=== PATIENT | male | born 1950 | race Caucasian/White ===

== ENCOUNTER 2017-07-30 14:50 | Inpatient (IN) | payer MEDICARE, BC ==
[~2017-07-30] VITALS: Ht 175.3 cm; Wt 92.7 kg
[2017-07-30] MEDS ORDERED: ASPI81TA30 PO (15:58)
[2017-07-30] MEDS ORDERED: LISI-600 PO (15:58)
[2017-07-30] MEDS ORDERED: MULT-933 PO (15:58)
[2017-07-30] MEDS ORDERED: ATOR20TA66 PO (15:58)
[2017-07-30] MEDS ORDERED: NABU750T2 PO (15:58)
[2017-07-30] MEDS ORDERED: CHLO4TAB36 PO (16:26)
[2017-07-30] MEDS ORDERED: tranexamic acid inj. 907 MG in normal saline 100ml IV soln 90.93 ML IV ONE (16:30)
[2017-07-30 16:58] LABS: BASOPHILS % (AUTO) 0.2 % (0-1); EOSINOPHILS # (AUTO) 0.4 X10'3 (0-0.9); EOSINOPHILS % (AUTO) 5.3 % (0-6); LYMPHOCYTES # (AUTO) 1.8 X10'3 (1.1-4.8); MEAN CORPUSCULAR HEMOGLOBIN 32.4 PG (27.0-31.0); MEAN CORPUSCULAR HGB CONC 34.6 % (33.0-36.5); MEAN CORPUSCULAR VOLUME 93.6 FL (78-98); MEAN PLATELET VOLUME 7.8 FL (7.4-10.4); MONOCYTES # (AUTO) 0.6 X10'3 (0-0.9); MONOCYTES % (AUTO) 8.7 % (2-12); NEUTROPHILS # (AUTO) 4.4 X10'3 (1.8-7.7); NEUTROPHILS % (AUTO) 60.8 % (42-75); PRE OP HEMATOCRIT 44.6 % (42.0-52.0); PRE OP HEMOGLOBIN 15.4 g/dL (14.0-17.9); PRE OP PLATELET COUNT 254 X10'3 (140-440); RED BLOOD COUNT 4.77 X10'6 (4.70-6.10); RED CELL DISTRIBUTION WIDTH 13.3 % (11.5-14.5)
[2017-07-30 17:05] LABS: ALBUMIN 3.8 G/DL (3.4-5.0); ALBUMIN/GLOBULIN RATIO 1.1 (1.1-1.5); ALKALINE PHOSPHATASE 62 IU/L (46-116); BLOOD UREA NITROGEN 15 MG/DL (7-18); BUN/CREATININE RATIO 13.6 (5.4-32.0); CALCIUM 8.6 MG/DL (8.5-10.1); CHLORIDE 104 MMOL/L (99-107); PRE OP ALT 45 U/L (30-65); PRE OP ANION GAP 9 (8-16); PRE OP AST 25 U/L (10-37); PRE OP BILIRUB, TOTAL 0.5 MG/DL (0.0-1.0); PRE OP SODIUM 140 MMOL/L (135-145); TOTAL CARBON DIOXIDE 26.9 MMOL/L (24-32); TOTAL PROTEIN 7.3 G/DL (6.4-8.2); eGFR 66 ML/MIN
[2017-07-30 17:11] LABS: PRE OP GLUCOSE 230 MG/DL (70-104)
[2017-07-30 17:19] LABS: HEMOGLOBIN A1C 6.7 % (4.5-6.2)
[2017-07-31] VITALS (17 sets, daily range): BP systolic 125–142; BP diastolic 69–88
[2017-07-31] MEDS ORDERED: ringers solution, lacted 1,000 ML IV SCH ×2 (05:00→10:14)
[2017-07-31] MEDS ORDERED: tranexamic acid inj. 907 MG in normal saline 100ml IV soln 90.93 ML IV ONE (05:30)
[2017-07-31] MEDS ORDERED: famotidine 20mg tablet PO ONE (05:30)
[2017-07-31] MEDS ORDERED: VANCOMYCIN INJ 1000 MG in NORMAL SALINE 250ml IV.SOLN IV ONE (05:30)
[2017-07-31] MEDS ORDERED: ceFAZolin inj. 2,000 MG in dextrose 5%-water 100 ML IV ONE (06:00)
[2017-07-31] MEDS ORDERED: vancomycin 1,000mg inj ONE (06:53)
[2017-07-31] MEDS ORDERED: ketorolac trometh. 30mg/ml inj. ONE (06:53)
[2017-07-31] MEDS ORDERED: ROPIVAcaine 0.5% (5mg/ml) 30ml vial ONE (06:53)
[2017-07-31] MEDS ORDERED: propofol inj 20 ML IV ONE (08:22)
[2017-07-31] MEDS ORDERED: LIDOcaine 2% (20mg/ml) 5ml vial ONE (08:22)
[2017-07-31] MEDS ORDERED: rocuronium 10mg/ml inj IV ONE (08:24)
[2017-07-31] MEDS ORDERED: fentaNYL /PF 50mcg/ml 5ml ampule ONE (08:26)
[2017-07-31] MEDS ORDERED: MIDAZolam 5mg/5ml vial ONE (08:27)
[2017-07-31] MEDS ORDERED: sevoflurane 250ml liquid IH ONE (08:39)
[2017-07-31] MEDS ORDERED: ePHEDrine 50MG/ML INJ. ONE (08:39)
[2017-07-31] MEDS ORDERED: ondansetron/PF 4mg/2ml inj IV PRN ×2 (10:15→11:20)
[2017-07-31] MEDS ORDERED: HYDROmorphone inj. 0.5 MG/0.5 ML DISP.SYRIN IV PRN ×3 (10:15→11:20)
[2017-07-31] MEDS ORDERED: fentaNYL/PF 50MCG/1 ML 2ML syringe IV PRN ×2 (10:15)
[2017-07-31] MEDS ORDERED: chlorpheniramine 4mg tablet PO PRN (11:20)
[2017-07-31] MEDS ORDERED: magnesium hydroxide 30ml (MOM) UD suspension PO PRN (11:20)
[2017-07-31] MEDS ORDERED: diphenhydrAMINE 25mg capsule PO PRN ×2 (11:20)
[2017-07-31] MEDS ORDERED: oxyCODONE IR 5mg (immed. release) tablet PO PRN (11:20)
[2017-07-31] MEDS ORDERED: bisacodyl 10mg suppository rectal RC PRN (11:20)
[2017-07-31] MEDS ORDERED: acetaminophen 325mg tablet PO PRN (11:20)
[2017-07-31] MEDS: TRANEXAMIC ACID IV ONE ×2 (12:27→14:25)
[2017-07-31] MEDS: NORMAL SALINE IV ONE ×2 (12:27→14:25)
[2017-07-31] MEDS: potassium cl 20mEq in 1/2 NS 1,000 ML IV SCH ×2 (12:38→20:54)
[2017-07-31] MEDS: ketorolac tromethamine 15mg/ml inj. IV SCH ×2 (13:18→20:54)
[2017-07-31] MEDS: gabapentin 300mg capsule PO SCH ×2 (13:18→20:53)
[2017-07-31] MEDS: acetaminophen 325mg tablet PO SCH ×2 (13:18→20:53)
[2017-07-31] MEDS: ceFAZolin 1GM/D5W- ADD-VANTAGE 50 ML IV SCH (15:25)
[2017-07-31] MEDS ORDERED: vancomycin/NS 1 GM ADD-VANTAGE 250 ML IV SCH (20:00)
[2017-07-31] MEDS: lisinopril 20mg tablet PO SCH (20:53)
[2017-07-31] MEDS ORDERED: sennosides 8.6mg tablet PO SCH (21:00)
[2017-08-01] MEDS: ceFAZolin 1GM/D5W- ADD-VANTAGE 50 ML IV SCH (00:05)
[2017-08-01] MEDS: oxyCODONE IR 5mg (immed. release) tablet PO PRN ×2 (01:19→05:27)
[2017-08-01 02:00] VITALS: BP 115/57
[2017-08-01] MEDS: ketorolac tromethamine 15mg/ml inj. IV SCH ×2 (02:13→08:46)
[2017-08-01] MEDS: acetaminophen 325mg tablet PO SCH ×2 (02:13→08:48)
[2017-08-01 05:07] LABS: BASOPHILS % (AUTO) 0.2 % (0-1); EOSINOPHILS # (AUTO) 0.2 X10'3 (0-0.9); EOSINOPHILS % (AUTO) 2.7 % (0-6); HEMATOCRIT 37.8 % (42.0-52.0); HEMOGLOBIN 13.1 g/dl (14.0-17.9); LYMPHOCYTES # (AUTO) 1.1 X10'3 (1.1-4.8); LYMPHOCYTES % (AUTO) 14.4 % (21-51); MEAN CORPUSCULAR HEMOGLOBIN 32.5 PG (27.0-31.0); MEAN CORPUSCULAR HGB CONC 34.6 % (33.0-36.5); MEAN CORPUSCULAR VOLUME 93.8 FL (78-98); MEAN PLATELET VOLUME 7.5 FL (7.4-10.4); MONOCYTES # (AUTO) 0.8 X10'3 (0-0.9); MONOCYTES % (AUTO) 10.7 % (2-12); NEUTROPHILS # (AUTO) 5.7 X10'3 (1.8-7.7); PLATELET COUNT 211 X10'3 (140-440); RED BLOOD COUNT 4.03 X10'6 (4.70-6.10); RED CELL DISTRIBUTION WIDTH 13.5 % (11.5-14.5); WHITE BLOOD COUNT 7.9 X10'3 (4.5-11.0)
[2017-08-01] MEDS: potassium cl 20mEq in 1/2 NS 1,000 ML IV SCH (05:34)
[2017-08-01 06:00] VITALS: BP 122/69
[2017-08-01 06:28] LABS: ANION GAP 11 (8-16); CHLORIDE 102 MMOL/L (99-107); POTASSIUM 4.3 MMOL/L (3.5-5.1); SODIUM 135 MMOL/L (135-145)
[2017-08-01] MEDS ORDERED: multivitamins, therapeutics tablet PO SCH (08:00)
[2017-08-01] MEDS ORDERED: aspirin 81mg tablet.DR PO SCH (08:00)
[2017-08-01] MEDS ORDERED: atorvastatin 20mg tablet PO SCH (08:00)
[2017-08-01] MEDS ORDERED: aspirin 325mg tablet PO SCH (08:30)
[2017-08-01] MEDS: lisinopril 20mg tablet PO SCH (08:46)
[2017-08-01] MEDS: gabapentin 300mg capsule PO SCH (08:48)
[2017-08-01] MEDS ORDERED: celeCOXIB 100mg capsule PO SCH (20:00)
[2017-08-02] MEDS ORDERED: acetaminophen 325mg tablet PO PRN (11:20)
== END 2017-08-01 09:30 | disposition home or self-care (01) | DRG 483 ==
LOC: EDSTATUS 14:50 → PAS IN 07-31 06:09 → EDSTATUS 07-31 09:00 → ORTHO 4S 07-31 12:10
PROVIDERS: ADMIT Orthopaedic Surgery; ATTEND Orthopaedic Surgery
PROC: 0LS30ZZ Reposition Right Upper Arm Tendon, Open Approach (ICD-10-PCS; 2017-07-31)
PROC: 0RRJ00Z Replacement of Right Shoulder Joint with Reverse Ball and Socket Synthetic Substitute, Open Approach (ICD-10-PCS; principal; 2017-07-31 08:38)
DX: M19.011 Primary osteoarthritis, right shoulder (principal); D62 Acute posthemorrhagic anemia; E11.9 Type 2 diabetes mellitus without complications; E78.5 Hyperlipidemia, unspecified; I10 Essential (primary) hypertension; M75.21 Bicipital tendinitis, right shoulder; M12.9 Arthropathy, unspecified; E66.9 Obesity, unspecified; M65.9 Synovitis and tenosynovitis, unspecified; Z96.651 Presence of right artificial knee joint; Z79.82 Long term (current) use of aspirin; Z79.899 Other long term (current) drug therapy; Z68.30 Body mass index [BMI] 30.0-30.9, adult
CPT/HCPCS: 36415; 80051; 80053; 82948; 83036; 85025; 87070; 97116; 97161; 97530; A4565; A7000; J0690; J1885; J2001; J2250; J2405; J2704; J2795; J3010; J3370; J7030; J7060; J7120